=== PATIENT | male | born 1970 | race Caucasian/White ===

== ENCOUNTER 2017-03-05 13:30 | Emergency (ER) | payer MEDICAID ==
[2017-03-05 13:35] VITALS: TEMP 98.2; O2SAT 98
[2017-03-05] MEDS ORDERED: chlordiazePOXIDE 25 MG CAP PO ONE (14:58)
[2017-03-05] MEDS ORDERED: CHLORDIAZEPOXIDE 25MG PREPK#6 BTL TAKEHOME ONE (14:58)
--- NOTE | 2017-03-05 15:03 | EDPHY ---
H & P Time Seen by Provider: 03/05/17 14:03 HPI/ROS: HPI Needs Librium for alcohol detox. 46-year-old male, long history of alcohol abuse, was sent from the [facility] for alcohol withdrawal symptoms. Requesting Librium to medicate for withdrawal. No other complaints. ROS: Constitutional: No fever, no chills. No weakness. As above. Respiratory: No cough. No shortness of breath. Cardiac: No chest pain, no palpitations. Gastrointestinal: No abdominal pain, no vomiting, no diarrhea. Musculoskeletal: No back pain. No neck pain. No myalgias or arthralgias. Skin: No rashes. Neurological: No headache. No focal weakness or altered sensation. Past medical history: Alcohol abuse. Social history: Alcohol abuse. Smoker. Here by himself. Physical Exam: General Appearance: Alert, no distress. He appears relaxed. This patient is responding to questions appropriately and in full sentences. This patient appears well-hydrated and well-nourished. Eyes: Pupils equal and round no pallor or injection. No lid edema, erythema or injection. Respiratory: There are no retractions, lungs are clear to auscultation with good air movement bilaterally. Cardiovascular: Regular rate and rhythm. Mild tachycardia, rate 110 to 115. No murmur. Gastrointestinal: Abdomen is soft and nontender, no masses, bowel sounds normal. No focal tenderness at McBurney's point. No Jimenez sign. Neurological: Motor sensory function is grossly intact. Cranial nerves are normal. Gait is normal. Mildly tremulous. Skin: Warm and dry, no rashes. Musculoskeletal: Neck is supple and nontender. Extremities are symmetrical. All joints range without pain or impingement. Psychiatric: No agitation. No depression. Database: EKG: Imaging: Procedures: Emergency department course: Vital signs reviewed. Patient moderately hypertensive. Mild tachycardia. Patient given 50 mg of oral Librium in the emergency department. Feels comfortable going back to the [facility] with a prepack of Librium. This has been prescribed. Be administered by the [facility] staff. Follow-up and return to emergency department precautions were reviewed with him. All of his questions were answered. He was discharged to the [facility] by taxi with Librium prepack which will be given by the taxicab starter to the [facility] staff. Differential Diagnosis: The differential diagnosis on this patient includes but is not limited to alcohol withdrawal, alcohol abuse. Delirium tremens unlikely. This represents a partial list of diagnoses considered. These considerations are based on history, physical exam, past history, reassessment and diagnostic testing. Smoking Status: Current every day smoker Constitutional: Initial Vital Signs Temperature (C) 36.8 C 03/05/17 13:33 Heart Rate 116 H 03/05/17 13:33 Respiratory Rate 16 03/05/17 13:33 Blood Pressure 152/96 H 03/05/17 13:33 O2 Sat (%) 98 03/05/17 13:33 O2 Delivery Mode Room Air Allergies/Adverse Reactions: No Known Allergies Allergy (Unverified 03/05/17 13:35) Medical Decision Making - Data Points Medications Given: Discontinued Medications Chlordiazepoxide (Librium 25 Mg Prepack#6) 1 btl TAKEHOME EDNOW ONE Stop: 03/05/17 14:59 Last Admin: 03/05/17 15:09 Dose: 1 btl Chlordiazepoxide HCl (Librium) 50 mg PO EDNOW ONE Stop: 03/05/17 14:59 Last Admin: 03/05/17 15:10 Dose: 50 mg Departure - Departure Disposition: Home, Routine, Self-Care Clinical Impression: Alcohol withdrawal Condition: Good Instructions: Chlordiazepoxide (By mouth), Alcohol Withdrawal (ED) Additional Instructions: Read and follow provided instructions. Follow-up with your primary care physician in 2-3 days for re-evaluation on completion of detox at the [facility]. Librium will be administered by the [facility] staff to treat your alcohol withdrawal symptoms. Return to the emergency department for worsening symptoms or other serious concerns. Referrals: [facility] Detox 24 Hours [Outside] - As per Instructions
[2017-03-05 15:31] VITALS: BP 153/98; PULSE 91; RESP 20
== END 2017-03-05 15:31 | disposition home or self-care (01) ==
DX: F10.239 Alcohol dependence with withdrawal, unspecified (principal); F17.200 Nicotine dependence, unspecified, uncomplicated